=== PATIENT | male | born 1980 | race Two or more races ===

== ENCOUNTER 2021-08-19 16:26 | Emergency (ER) | payer OTHER ==
[~2021-08-19] VITALS: Ht 182.9 cm; Wt 101.6 kg
== END 2021-08-19 18:15 | disposition home or self-care (01) ==
LOC: ED 16:26
DX: S14.3XXA Injury of brachial plexus, initial encounter (principal); Z91.013 Allergy to seafood; V40.5XXA Car driver injured in collision with pedestrian or animal in traffic accident, initial encounter
CPT/HCPCS: 73030; 99284-25